=== PATIENT | male | born 1985 | race Caucasian/White ===

== ENCOUNTER → 2017-02-04 | Outpatient (CLI) | payer OTHER ==
--- NOTE | 2017-02-04 17:03 | MR ---
EXAMINATION TYPE: MR lumbar spine wo con DATE OF EXAM: 02/04/2017 COMPARISON: Plain film 02/08/2016 HISTORY: Back pain, M [age] TECHNIQUE: Multiplanar, multisequence images of the lumbar spine were acquired. L1-L2: Normal disc appearance without desiccation. No herniation, protrusion or disc bulging. No ca nal stenosis is present. Foramina are patent bilaterally. L2-L3: Normal disc appearance without desiccation. No herniation, protrusion or disc bulging. No ca nal stenosis is present. Foramina are patent bilaterally. L3-L4: Normal disc appearance without desiccation. No herniation, protrusion or disc bulging. No ca nal stenosis is present. Foramina are patent bilaterally. L4-L5: Broad-based posterior disc bulge causes mild anterior mass effect on the thecal sac. No signif icant central stenosis. Facet arthropathy with hypertrophy of the ligamentum flavum causes minimal la teral recess encroachment. L5-S1: Normal disc appearance without desiccation. No herniation, protrusion or disc bulging. No ca nal stenosis is present. Foramina are patent bilaterally. Facet arthropathy changes present. Lumbar segments are intact. No paraspinal masses are identified. Conus medullaris has a normal appe arance. Lumbar vertebral bodies show preserved height and alignment. There is some loss of disc heigh t and signal at L4-5, endplate discogenic marrow signal change as well as probable Schmorl's node inf erior endplate of L4. IMPRESSION: Degenerative disc disease most pronounced at L4-5. Mild facet arthropathy.
== END | disposition home or self-care (01) ==
LOC: RADMRIMAIN 16:15
PROVIDERS: ATTEND Family Medicine
DX: M51.36 Other intervertebral disc degeneration, lumbar region (principal); M46.86 Other specified inflammatory spondylopathies, lumbar region
CPT/HCPCS: 72148

== ENCOUNTER 2018-06-24 10:33 | Emergency (ER) | payer OTHER ==
[2018-06-24 10:37] VITALS: RESP 18
--- NOTE | 2018-06-24 11:27 | ED ---
Upper Extremity HPI - General Chief Complaint: Extremity Injury, Upper Stated Complaint: [facility] - crushed finger Time Seen by Provider: 06/24/18 11:07 Source: patient, family, RN notes reviewed Mode of arrival: ambulatory Limitations: no limitations - History of Present Illness Initial Comments: 32-year-old male presents emergency Department chief complaint of crush injury to his right hand second digit. Patient states that it was crushed between patient machinery. Patient was seen in [facility]. Patient had his tetanus updated had no x-rays they did not do any treatment of this. Patient states that it is throbbing he does have full sensation. He had some noted blistering injury to third and fourth digit. Patient has no other complaints. - Related Data Home Medications Medication Instructions Recorded Confirmed Ibuprofen [Motrin Ib] 800 mg PO Q6H PRN 06/24/18 06/24/18 Previous Rx's Medication Instructions Recorded Cephalexin [Keflex] 500 mg PO Q6HR #40 cap 06/24/18 Allergies Allergy/AdvReac Type Severity Reaction Status Date / Time No Known Allergies Allergy Verified 06/24/18 10:46 Review of Systems ROS Statement: Those systems with pertinent positive or pertinent negative responses have been documented in the HPI. ROS Other: All systems not noted in ROS Statement are negative. Past Medical History Additional Past Medical History / Comment(s): arthritis to back - djd History of Any Multi-Drug Resistant Organisms: None Reported Past Surgical History: No Surgical Hx Reported Past Psychological History: No Psychological Hx Reported Smoking Status: Never smoker Past Alcohol Use History: Occasional Past Drug Use History: None Reported General Exam General appearance: alert, in no apparent distress Respiratory exam: Present: normal lung sounds bilaterally. Absent: respiratory distress, wheezes, rales, rhonchi, stridor Cardiovascular Exam: Present: regular rate, normal rhythm, normal heart sounds. Absent: systolic murmur, diastolic murmur, rubs, gallop, clicks Extremities exam: Present: other (Right hand second digit there is a crush type injury to the distal portion patient has good range of motion nail is intact there is a stellate laceration to the distal portion of the finger approximately 1 cm) Skin exam: Present: warm, dry, intact, normal color. Absent: rash Course Vital Signs 06/24/18 10:35 Temperature 97.4 F L Pulse Rate 54 L Respiratory 18 Rate Blood Pressure 131/83 O2 Sat by Pulse 99 Oximetry Medical Decision Making - Medical Decision Making 32-year-old male present emergency dept for right hand second finger injury. Patient does have an open fracture was given Ancef here will be discharged on Keflex. Patient will follow-up with orthopedics for further treatment. Attempted closure which was partial. Disposition Clinical Impression: Crushing injury of finger of right hand, Open finger fracture Disposition: HOME SELF-CARE Condition: Stable Instructions: Finger Fracture (ED) Additional Instructions: Please return to the Emergency Department if symptoms worsen or any other concerns. Prescriptions: Cephalexin [Keflex] 500 mg PO Q6HR #40 cap Is patient prescribed a controlled substance at d/c from ED?: No Referrals: Uriah Bravo DO [Primary Care Provider] - 1-2 days Ajit Alford MD [STAFF PHYSICIAN] - 1-2 days Time of Disposition: 12:52
--- NOTE | 2018-06-24 11:54 | XR ---
EXAMINATION TYPE: XR finger RT DATE OF EXAM: 06/24/2018 COMPARISON: NONE HISTORY: 32-year-old male question injury, pain TECHNIQUE: 3 views coned down right second digit FINDINGS: Cone down images of the right index finger shows a mildly comminuted fracture along the ulnar aspect of the distal phalangeal tuft with two 3 mm fracture fragments displaced into the soft tissues ulnar and volarly. Associated soft tissue injury. No subluxation or dislocation. IMPRESSION: Comminuted fracture along the ulnar aspect of the distal phalangeal tuft. There are 2 fracture fragme nts displaced into the adjacent soft tissues. Associated soft tissue injury.
[2018-06-24] MEDS ORDERED: LIDOCAINE 1% INJ 10MG/ML (20 ML MDV) SQ ONE (12:10)
[2018-06-24] MEDS ORDERED: ceFAZolin 1,000 MG VIAL IM STA (12:16)
[2018-06-24] MEDS ORDERED: ACET/COD 300 MG/30 MG STARTER PACK 6 TAB BTL PO STA (12:51)
--- NOTE | 2018-06-24 12:54 | ED ---
Disposition Clinical Impression: Crushing injury of finger of right hand, Open finger fracture Disposition: HOME SELF-CARE Condition: Stable Instructions: Finger Fracture (ED) Additional Instructions: Please return to the Emergency Department if symptoms worsen or any other concerns. Prescriptions: Cephalexin [Keflex] 500 mg PO Q6HR #40 cap Is patient prescribed a controlled substance at d/c from ED?: No Referrals: Uriah Bravo DO [Primary Care Provider] - 1-2 days Ajit Alford MD [STAFF PHYSICIAN] - 1-2 days Procedures - Laceration Laceration #1 Consent Obtained: verbal consent Indication: laceration Site: other (right 2nd finger) Description: irregular Depth: involves muscle layer Anesthetic Used: lidocaine 1% Anesthesia Technique: nerve block Amount (mls): 6 Pre-repair: wound explored Type of Sutures: vicryl Size of Sutures: 5-0 (2 in finger pad, one mid distal tip of finger, one on ulnar aspect distal phalanx, one radial aspect distal phalanx) Number of Sutures: 5 Technique: simple, interrupted Patient Tolerated Procedure: well, no complications
[2018-06-24 13:21] VITALS: BP 124/76; PULSE 87; TEMP 98.7
== END 2018-06-24 13:21 | disposition home or self-care (01) ==
LOC: EC 10:33
DX: S67.190A Crushing injury of right index finger, initial encounter (principal); S62.600B Fracture of unspecified phalanx of right index finger, initial encounter for open fracture; W31.89XA Contact with other specified machinery, initial encounter; Y92.69 Other specified industrial and construction area as the place of occurrence of the external cause; Y99.0 Civilian activity done for income or pay
CPT/HCPCS: 73140; 99283; 96372; J0690; J2001